=== PATIENT | female | born 1965 | race African-American/Black ===

== ENCOUNTER 2023-09-02 19:14 | Emergency (ER) | payer MEDICAID, OTHER ==
[~2023-09-02] VITALS: Ht 152.4 cm; Wt 91.0 kg
[~2023-09-02 19:14] MED LIST: ARIP20TA2
[2023-09-02 19:18] VITALS: BP 148/72; PULSE 88; RESP 18; TEMP 98.2; O2SAT 100
[2023-09-02] MEDS ORDERED: ONDANSETRON 4MG ODT PO STA (20:30)
[2023-09-02 21:06] LABS: BASOPHILS % 0.7 % (0.0-2.0); EOSINOPHILS % 0.1 % (0.0-5.0); HEMATOCRIT. 39.1 % (36.0-48.0); HEMOGLOBIN. 13.1 g/dL (12.0-16.0); LYMPHOCYTES % 24.6 % (20.0-50.0); MEAN CORPUSCULAR HEMOGLOBIN 28.6 pg (28.0-32.0); MEAN CORPUSCULAR HGB CONC 33.5 g/dL (31.0-37.0); MEAN CORPUSCULAR VOLUME 85.4 fL (81.0-99.0); NEUTROPHILS % 67.6 % (40.0-76.0); PLATELET 245 x1000/uL (130-400); RED BLOOD CELL COUNT 4.58 mill/uL (4.2-5.4); RED CELL DISTRIBUTION WIDTH 14.7 % (11.6-14.6); WHITE BLOOD COUNT 12.6 x1000/uL (4.5-11.0)
[2023-09-02 21:11] LABS: CHLORIDE 105 mEq/L (98-107); INDEX HEMOLYSI 1 (1-3); INDEX ICTERIC 1 (1-4); INDEX LIPEMIC 1 (1-3); POTASSIUM 3.2 mEq/L (3.5-5.1); SODIUM 138 mEq/L (136-145)
[2023-09-02 21:20] LABS: ALANINE AMINOTRANSFERASE 36 IU/L (13-61); ASPARTATE AMINOTRANSFERASE 21 IU/L (15-37); BILIRUBIN TOTAL 0.8 mg/dL (0.1-1.0); CALCIUM 9.5 mg/dL (8.5-10.1); CARBON DIOXIDE 24 mEq/L (21-32); CREATININE 0.8 mg/dL (0.6-1.3); GLUCOSE 106 mg/dL (70-105); PROTEIN TOTAL 7.8 g/dL (6.0-8.3); UREA NITROGEN BLOOD 8 mg/dL (7-21)
[2023-09-02] MEDS ORDERED: KETOROLAC 60MG/2ML VIAL IM ONE (22:00)
[2023-09-02] MEDS ORDERED: POTASSIUM CHLORIDE 20MEQ TABLET SR PO ONE (22:00)
[2023-09-03 00:19] LABS: CLARITY URINE CLOUDY (CLEAR); COLOR URINE DARK YELLOW (YELLOW); GLUCOSE URINE NEGATIVE (NEGATIVE); KETONES URINE 1+ (NEGATIVE); LEUKOCYTE ESTERASE URINE NEGATIVE (NEGATIVE); NITRITE URINE NEGATIVE (NEGATIVE); OCCULT BLOOD URINE NEGATIVE (NEGATIVE); PROTEIN URINE 1+ (NEGATIVE); SPECIFIC GRAVITY URINE 1.034 (1.005-1.030)
[2023-09-03 00:21] LABS: YEAST URINE NONE SEEN
[2023-09-03] MEDS ORDERED: IBUP-2028 MT (01:22)
[2023-09-03 02:13] LABS: SQUAMOUS EPITHELIAL CELL URINE FEW /lpf (RARE/1+)
[2023-09-03 02:14] LABS: RBC URINE 0-2 /hpf (0-2); WBC URINE 0-2 /hpf (0-2)
[2023-09-03] MEDS ORDERED: POTASSIUM CHLORIDE 20MEQ TABLET SR PO NR (02:15)
[2023-09-03 02:16] LABS: BACTERIA URINE 1+
== END 2023-09-03 02:15 | disposition home or self-care (01) ==
LOC: ER 19:14
DX: R10.33 Periumbilical pain (principal); R51.9 Headache, unspecified; E11.9 Type 2 diabetes mellitus without complications; I10 Essential (primary) hypertension
CPT/HCPCS: 99285; 74176; 80053; 81003; 81025; 83690; 85025; 36415; 96372; Q0162; J1885

== ENCOUNTER 2023-09-08 02:55 | Emergency (ER) | payer MEDICAID ==
[~2023-09-08] VITALS: Ht 157.5 cm; Wt 100.0 kg
[~2023-09-08 02:55] MED LIST changes: +IBUP-2028 MT
[2023-09-08 03:00] VITALS: BP 126/82; O2SAT 97
[2023-09-08] MEDS ORDERED: ONDANSETRON 4MG ODT PO STA (03:17)
[2023-09-08] MEDS ORDERED: MAGNESIUM/ALUMINUM HYDROXIDE/SIMETHICONE 30ML UDC PO STA (03:17)
[2023-09-08] MEDS ORDERED: ACETAMINOPHEN 325MG TABLET PO STA (03:17)
[2023-09-08] MEDS ORDERED: SODIUM CHLORIDE 0.9% 1,000 ML IV ONE (03:30)
[2023-09-08 03:47] LABS: BASOPHILS % 0.2 % (0.0-2.0); EOSINOPHILS % 0.7 % (0.0-5.0); HEMATOCRIT. 40.1 % (36.0-48.0); HEMOGLOBIN. 13.4 g/dL (12.0-16.0); LYMPHOCYTES % 38.8 % (20.0-50.0); MEAN CORPUSCULAR HEMOGLOBIN 28.8 pg (28.0-32.0); MEAN CORPUSCULAR HGB CONC 33.5 g/dL (31.0-37.0); MEAN PLATELET VOLUME 8.4 fl (7.4-10.4); MONOCYTES % 9.5 % (2.0-8.0); NEUTROPHILS % 50.8 % (40.0-76.0); PLATELET 252 x1000/uL (130-400); RED BLOOD CELL COUNT 4.66 mill/uL (4.2-5.4); RED CELL DISTRIBUTION WIDTH 14.8 % (11.6-14.6); WHITE BLOOD COUNT 7.9 x1000/uL (4.5-11.0)
[2023-09-08 03:55] LABS: CHLORIDE 107 mEq/L (98-107); INDEX HEMOLYSI 1 (1-3); INDEX ICTERIC 1 (1-4); INDEX LIPEMIC 1 (1-3); POTASSIUM 3.6 mEq/L (3.5-5.1); SODIUM 138 mEq/L (136-145)
[2023-09-08 03:56] LABS: PROTHROMBIN TIME 10.5 sec (9.6-11.0)
[2023-09-08 04:04] LABS: ALANINE AMINOTRANSFERASE 36 IU/L (13-61); ALBUMIN 3.8 g/dL (3.4-5.0); ASPARTATE AMINOTRANSFERASE 18 IU/L (15-37); BILIRUBIN TOTAL 0.7 mg/dL (0.1-1.0); CALCIUM 9.2 mg/dL (8.5-10.1); CARBON DIOXIDE 26 mEq/L (21-32); ETHANOL BLOOD < 10 mg/dL (<10); GLUCOSE 115 mg/dL (70-105); PROTEIN TOTAL 7.6 g/dL (6.0-8.3); TROPONIN I HIGH SENSITIVITY 7 ng/L (<54); UREA NITROGEN BLOOD 10 mg/dL (7-21)
[2023-09-08 04:10] LABS: CLARITY URINE CLEAR (CLEAR); COLOR URINE YELLOW (YELLOW); GLUCOSE URINE NEGATIVE (NEGATIVE); KETONES URINE TRACE (NEGATIVE); LEUKOCYTE ESTERASE URINE NEGATIVE (NEGATIVE); NITRITE URINE NEGATIVE (NEGATIVE); OCCULT BLOOD URINE NEGATIVE (NEGATIVE); PROTEIN URINE NEGATIVE (NEGATIVE); SPECIFIC GRAVITY URINE 1.015 (1.005-1.030); UROBILINOGEN URINE 0.2 E.U./dL (0.2-1.0)
[2023-09-08] MEDS ORDERED: ONDA4TAB50 MT (04:58)
[2023-09-08] MEDS ORDERED: MAG355OR21 MT (04:58)
[2023-09-08] MEDS ORDERED: PROT40 MT (04:58)
[2023-09-08] MEDS ORDERED: ACET-2708 MT (04:58)
[2023-09-08 05:15] VITALS: PULSE 86; RESP 18; TEMP 98.9
== END 2023-09-08 05:19 | disposition home or self-care (01) ==
LOC: ER 02:55
DX: R10.84 Generalized abdominal pain (principal); E11.9 Type 2 diabetes mellitus without complications; Z00.00 Encounter for general adult medical examination without abnormal findings
CPT/HCPCS: 80053; 81003; 80320; 83605; 83690; 85025; 85610; 84484; 36415; 71045; 76700; 93005; 96360; 99285; Q0162; J7030; Z7610; G0480